=== PATIENT | female | born 2000 | race African-American/Black ===

== ENCOUNTER 2022-07-06 11:37 | Outpatient (CLI) | payer OTHER, SELFPAY | END 2022-07-06 11:38 | disposition home or self-care (01) | LOC: LAB 11:38 | PROVIDERS: PCP Nurse Practitioner Adult Health; Visit Provider Nurse Practitioner Adult Health | DX: Z11.1 Encounter for screening for respiratory tuberculosis (principal) | CPT/HCPCS: 36415; 86480 ==

== ENCOUNTER 2022-08-10 12:26 | Outpatient (CLI) | payer OTHER, SELFPAY ==
--- NOTE | 2022-08-10 13:00 | CRLHL7_ITS ---
For Patients: As a result of the Cures Act, medical imaging exams and procedure reports are released immediately into your electronic medical record. You may view this report before your referring provider. If you have questions, please contact your health care provider. INDICATION: Screening tuberculosis TECHNIQUE: Chest radiograph 2 views COMPARISON: None FINDINGS: Mediastinum: The mediastinum is normal in appearance. The heart silhouette is normal in size and morphology. Lung: Both lungs are unremarkable in appearance but evaluation is limited due to overlying artifacts. No sign of pleural effusion seen. No pneumothorax is identified. Bone and Soft tissue: Unremarkable for age. IMPRESSION: 1. No acute cardiopulmonary disease is seen. Dictated by: Charles Merino MD @ 08/10/2022 13:02:39 (Electronically Signed)
== END 2022-08-10 12:27 | disposition home or self-care (01) ==
LOC: RAD 12:30
PROVIDERS: PCP Nurse Practitioner Adult Health; Visit Provider Nurse Practitioner Adult Health
DX: Z11.1 Encounter for screening for respiratory tuberculosis (principal)
CPT/HCPCS: 71046

== ENCOUNTER 2025-07-25 22:34 | Outpatient (CLI) | payer OTHER, SELFPAY | END 2025-07-25 22:35 | disposition home or self-care (01) | LOC: AMB 07-29 19:19 | PROVIDERS: PCP Nurse Practitioner Adult Health; Visit Provider Family Medicine | DX: S61.411A Laceration without foreign body of right hand, initial encounter (principal); W25.XXXA Contact with sharp glass, initial encounter; Y93.G1 Activity, food preparation and clean up; Y92.009 Unspecified place in unspecified non-institutional (private) residence as the place of occurrence of the external cause | CPT/HCPCS: A0998 ==

== ENCOUNTER 2025-07-25 23:05 | Emergency (ER) | payer OTHER, SELFPAY ==
[2025-07-25 23:08] VITALS: BP 110/73; PULSE 95; RESP 18; TEMP 36.6; O2SAT 98; BMI 31.3
--- NOTE | 2025-07-25 23:16 | ED_ITS ---
HPI - Wound/Laceration General Time Seen by Provider: 23:16 Date Seen: 07/25/25 Chief Complaint: Laceration/Wound Stated Complaint: glass in R hand Time Seen by Provider: 07/25/25 23:16 Source: patient and RN notes reviewed Mode of arrival: ambulatory Limitations: no limitations Related Data Home Medications ?Medication ?Instructions ?Recorded ?Confirmed No Known Home Medications 12/30/24/2 10/05 Allergies Allergy/AdvReac Type Severity Reaction Status Date / Time No Known Drug Allergies Allergy Verified 12/30/24 12:37 Exam Const: Vital Signs, click to edit/add: Vital Signs - 24 hr 07/25/25 23:08 Temperature 98 F Pulse Rate [Pulse Oximeter] 95 Respiratory Rate 18 Blood Pressure [Ri ght Upper Arm] 110/73 Pulse Oximetry 98 Oxygen Delivery Me thod Room Air Course Vital Signs Vital signs: Initial Vital Signs Temperature 98 F 07/25/25 23:08 Temperature Source Temporal Artery Scan 07/25/25 23:08 Pulse Rate 95 07/25/25 23:08 Respiratory Rate 18 07/25/25 23:08 Blood Pressure 110/73 07/25/25 23:08 Blood Pressure Mean 85 07/25/25 23:08 Blood Pressure Position Sitting 07/25/25 23:08 Pulse Oximetry 98 07/25/25 23:08 Oxygen Delivery Method Room Air 07/25/25 23:08 Vital Signs Temperature 98 F 07/25/25 23:08 Pulse Rate 95 07/25/25 23:08 Respiratory Rate 18 07/25/25 23:08 Blood Pressure 110/73 07/25/25 23:08 Pulse Oximetry 98 07/25/25 23:08 Oxygen Delivery Method Room Air 07/25/25 23:08 Temperature 98 F 07/25/25 23:08 Pulse Rate 95 07/25/25 23:08 Respiratory Rate 18 07/25/25 23:08 Blood Pressure 110/73 07/25/25 23:08 Pulse Oximetry 98 07/25/25 23:08 Oxygen Delivery Method Room Air 07/25/25 23:08 Discharge Plan Discharge Prescriptions: No Action No Known Home Medications Follow Up/Referrals: Madeleine Dugan, [employer] [Primary Care Provider, Family Practice]
[2025-07-25] MEDS: LIDOCAINE/EPINEP/TETRACAINE 3 ML GEL..ML. TOPICAL (23:25)
--- NOTE | 2025-07-26 00:26 | ED.GENADULT ---
HPI - General Adult General Chief complaint: Laceration/Wound Stated complaint: glass in R hand Time Seen by Provider: 07/25/25 23:16 Source: patient and RN notes reviewed Mode of arrival: ambulatory Limitations: no limitations History of Present Illness HPI narrative: Patient is a 25-year-old woman who comes in tonight with laceration at the base of the right thumb posteriorly. She was washing dishes when a glass broke and she cut her hand. She is hemostasis and her tetanus shot is up-to-date. The wound is approximately 3 cm in length. No foreign bodies have been found. Related Data Home Medications ?Medication ?Instructions ?Recorded ?Confirmed No Known Home Medications 12/30/24 12/30/24 Allergies Allergy/AdvReac Type Severity Reaction Status Date / Time No Known Drug Allergies Allergy Verified 12/30/24 12:37 PFSH PFS Social History Smoking Status: Never smoker Do you use any of these nicotine containing products: None How often do you have a drink containing alcohol: never AUDIT-C Alcohol total score: 0 Non-prescribed substance use: denies use Exam Narrative: Exam Narrative: EXAM GENERAL: Patient appears comfortable and well. LYMPH: No supraclavicular or cervical lymphadenopathy. SKIN: 3 cm laceration base of the right thumb as noted above. EXT: No dependent lower extremity pedal edema. HEART: Regular rate and rhythm with no murmurs, rubs, or gallops. LUNGS: Clear to auscultation bilaterally with no crackles or wheezes. ABD: Soft, non tender, non distended. PSYCH: Good eye contact, speech is not pressured. Const: Vital Signs, click to edit/add: Vital Signs - 24 hr 07/25/25 23:08 Temperature 98 F Pulse Rate [Pulse Oximeter] 95 Respiratory Rate 18 Blood Pressure [Ri ght Upper Arm] 110/73 Pulse Oximetry 98 Oxygen Delivery Me thod Room Air Course Vital Signs Vital signs: Initial Vital Signs Temperature 98 F 07/25/25 23:08 Temperature Source Temporal Artery Scan 07/25/25 23:08 Pulse Rate 95 07/25/25 23:08 Respiratory Rate 18 07/25/25 23:08 Blood Pressure 110/73 07/25/25 23:08 Blood Pressure Mean 85 07/25/25 23:08 Blood Pressure Position Sitting 07/25/25 23:08 Pulse Oximetry 98 07/25/25 23:08 Oxygen Delivery Method Room Air 07/25/25 23:08 Vital Signs Temperature 98 F 07/25/25 23:08 Pulse Rate 95 07/25/25 23:08 Respiratory Rate 18 07/25/25 23:08 Blood Pressure 110/73 07/25/25 23:08 Pulse Oximetry 98 07/25/25 23:08 Oxygen Delivery Method Room Air 07/25/25 23:08 Temperature 98 F 07/25/25 23:08 Pulse Rate 95 07/25/25 23:08 Respiratory Rate 18 07/25/25 23:08 Blood Pressure 110/73 07/25/25 23:08 Pulse Oximetry 98 07/25/25 23:08 Oxygen Delivery Method Room Air 07/25/25 23:08 Medications Administered Medications: Generic Name Dose Route Start Last Admin Trade Name Mojgan PRN Reason Stop Dose Admin Lidocaine/Epinephrine/Tetracaine 3 ml 07/25/25 23:21 07/25/25 23:25 Lidocaine/Epinep/Tetracaine 3 Ml Gel..Ml. TOPICAL 07/25/25 23:22 3 ml ONCE ONE Administration Medical Decision Making MDM Narrative Medical decision making narrative: Patient presents with laceration on her right hand. After explaining the risks and benefits we did place let on the wound. I then extended the anesthesia with 1% lidocaine without epinephrine. I then closed the defect with for running 3-0 Ethilon sutures. She was instructed on wound care will follow-up with her primary physician as needed for suture removal approximately 10 days. Discharge Plan Discharge Clinical Impression: Laceration Patient Disposition: Home, Self-Care Condition: Stable Instructions: Laceration (ED) Additional Instructions: Keep wound clean Sutures out in 10 days Activity Level: No Restrictions Discharge Diet: Regular Prescriptions: No Action No Known Home Medications Follow Up/Referrals: Madeleine Dugan NP [Primary Care Provider, Family Practice] Stand Alone Forms: [employer] Info Instructions
== END 2025-07-26 00:52 | disposition home or self-care (01) ==
PROVIDERS: Emergency Provider Family Medicine; PCP Nurse Practitioner Adult Health
DX: S61.011A Laceration without foreign body of right thumb without damage to nail, initial encounter (principal); W26.9XXA Contact with unspecified sharp object(s), initial encounter; Y93.G1 Activity, food preparation and clean up
CPT/HCPCS: 12002; 99283